=== PATIENT | male | born 1960 | race Caucasian/White ===

== ENCOUNTER → 2018-03-04 | Outpatient (CLI) | payer MEDICAID ==
[~2018-03-04] MED LIST: BUPR75TA PO; CLOZ100T PO; CLOZ25TA PO; PRAV20TA2 PO; ZOLO100T PO
--- NOTE | 2018-03-04 10:52 | RADRPT ---
EXAM DATE/TIME: 03/04/2018 10:42 [place] COMPARISON: No previous studies available for comparison. INDICATIONS : Evaluate for pneumonia, pneumothorax or communicable disease. Pre op skin cancer removal from face. MEDICAL HISTORY : None. SURGICAL HISTORY : None. ENCOUNTER: Initial ACUITY: 1 day PAIN SCORE: 0/10 LOCATION: Bilateral chest FINDINGS: PA and lateral views of the chest demonstrate the lungs to be symmetrically aerated without evidence of mass, infiltrate or effusion. The cardiomediastinal contours are unremarkable. Osseous structure s are intact. CONCLUSION: Normal examination. Teja Chaidez Jr., MD on March 04, 2018 at 10:49 Board Certified Radiologist. This report was verified electronically.
--- NOTE | 2018-03-04 11:56 | EKG ---
Date Performed: 03/04/2018 Time Performed: 10:19:18 PTAGE: 57 years EKG: Sinus rhythm Leftward axis Borderline ECG PREVIOUS TRACING : 09/04/2012 22.26 No significant change from previous tracing noted. DOCTOR: Abdi Montelongo Interpretating Date/Time 03/04/2018 11:54:08
== END ==
LOC: HCAV 09:41
DX: Z01.810 Encounter for preprocedural cardiovascular examination (principal); R00.2 Palpitations
CPT/HCPCS: 71046; 93005